=== PATIENT | male | born 1960 | race Caucasian/White ===

== ENCOUNTER 2016-12-05 18:39 | Emergency (ER) | payer OTHER | END 2016-12-05 20:40 | disposition home or self-care (01) | LOC: FER 18:39 | DX: S46.912A Strain of unspecified muscle, fascia and tendon at shoulder and upper arm level, left arm, initial encounter (principal); S80.11XA Contusion of right lower leg, initial encounter; I25.2 Old myocardial infarction; E78.5 Hyperlipidemia, unspecified; V49.40XA Driver injured in collision with unspecified motor vehicles in traffic accident, initial encounter | CPT/HCPCS: 71010; 73030; 73590; 99284 ==

== ENCOUNTER 2020-08-20 08:02 | Emergency (ER) | payer OTHER ==
[~2020-08-20 08:02] MED LIST: AUGMENTIN 875-1 EACH PO; MEDROL 4MG DOSEP4 MG PO; NORCO 5-325 TA1 EACH PO; VALACYCLOVIR1000 MG PO
[2020-08-20] MEDS ORDERED: CYCLOBENZAPRINE10 MG PO (08:54)
== END 2020-08-20 09:03 | disposition home or self-care (01) ==
LOC: FER 08:02
DX: S92.152A Displaced avulsion fracture (chip fracture) of left talus, initial encounter for closed fracture (principal); S92.252A Displaced fracture of navicular [scaphoid] of left foot, initial encounter for closed fracture; S93.402A Sprain of unspecified ligament of left ankle, initial encounter; S63.502A Unspecified sprain of left wrist, initial encounter; I25.10 Atherosclerotic heart disease of native coronary artery without angina pectoris; F17.200 Nicotine dependence, unspecified, uncomplicated; W01.0XXA Fall on same level from slipping, tripping and stumbling without subsequent striking against object, initial encounter; Y92.009 Unspecified place in unspecified non-institutional (private) residence as the place of occurrence of the external cause
CPT/HCPCS: 73110; 73560; 73610